=== PATIENT | male | born 1960 | race Caucasian/White ===

== ENCOUNTER 2021-05-29 18:42 | Emergency (ER) | payer OTHER ==
[2021-05-29] MEDS ORDERED: CASIRIVIMAB/IMDEVIMAB 10 ML in SODIUM CHLORIDE 100 ML IVPB ONE (18:48)
[2021-05-29 19:02] VITALS: BMI 24.3
[2021-05-29] MEDS ORDERED: ACETAMINOPHEN 500 MG TABLET (FP) PO ONE (19:03)
[2021-05-29] MEDS ORDERED: KETOROLAC TROMETHAMINE 30 MG/1 ML VIAL IVPUSH ONE (19:03)
[2021-05-29] MEDS ORDERED: KETOROLAC TROMETHAMINE 30 MG/1 ML VIAL ONE (19:59)
[2021-05-29] MEDS ORDERED: ACETAMINOPHEN 500 MG TABLET (FP) ONE (20:00)
[2021-05-29 20:32] LABS: HEMATOCRIT 37.1 % (35.4-49); HEMOGLOBIN 12.6 GM/dL (11.7-16.9); MCH 32.5 pg (25.7-33.7); MEAN CELL VOLUME 95.6 fl (80-96); MEAN PLT VOLUME 9.7 fl (7.5-11.1); PLATELET COUNT 115 10^3/uL (134-434); RBC 3.88 M/mm3 (4.00-5.60)
[2021-05-29 20:47] LABS: CALCIUM 8.5 mg/dL (8.5-10.1)
[2021-05-29 20:48] LABS: BLOOD UREA NITROGEN 15.8 mg/dL (7-18)
[2021-05-29] MEDS ORDERED: SODIUM CHLORIDE 0.9% 500 ML INFUS.BAG IV ONE (21:02)
[2021-05-29 22:05] VITALS: BP 166/55; PULSE 72; TEMP 98.7
== END 2021-05-29 22:30 | disposition home or self-care (01) ==
LOC: JER 18:42
PROC: 3E033GC Introduction of Other Therapeutic Substance into Peripheral Vein, Percutaneous Approach (ICD-10-PCS; principal; 2021-05-29)
DX: U07.1 COVID-19 (principal)
CPT/HCPCS: 36415; 80048; 85027; 99284-25; Q0240

== ENCOUNTER 2021-05-30 11:40 | Inpatient (IN) | payer OTHER ==
[2021-05-30 11:58] VITALS: BMI 24.3
[2021-05-30] MEDS ORDERED: ONDANSETRON 4 MG/2 ML VIAL IVPUSH ONE (12:14)
[2021-05-30] MEDS ORDERED: ACETAMINOPHEN 1000 MG/100 ML VIAL IVPB ONE (12:14)
[2021-05-30] MEDS ORDERED: LACTATED RINGERS SOLUTION 1000 ML INFUS.BAG IV ONE (12:14)
[2021-05-30] MEDS ORDERED: FAMOTIDINE 20 MG/50 ML IVPB 20 MG/50 ML MG IVPB ONE ×2 (12:14→12:31)
[2021-05-30] MEDS ORDERED: DEXAMETHASONE SOD PHOSPHATE 10 MG/1 ML VIAL IVPUSH ONE (12:18)
[2021-05-30] MEDS ORDERED: DEXAMETHASONE SOD PHOSPHATE 10 MG/1 ML VIAL ONE (12:31)
[2021-05-30] MEDS ORDERED: ACETAMINOPHEN INJECTION 100 ML IVPB ONE (12:31)
[2021-05-30] MEDS ORDERED: ONDANSETRON 4 MG/2 ML VIAL ONE (13:20)
[2021-05-30 13:32] LABS: HEMATOCRIT 34.4 % (35.4-49); HEMOGLOBIN 11.4 GM/dl (11.7-16.9); MCHC 33.2 g/dl (32.0-35.9); MEAN CELL VOLUME 96.5 fl (80-96); MEAN PLT VOLUME 9.2 fl (7.5-11.1); PLATELET COUNT 119 10^3/uL (134-434); RBC 3.57 M/mm3 (4.00-5.60); RDW 12.3 % (11.9-15.9); WHITE BLOOD COUNT 4.4 K/mm3 (4.0-10.8)
[2021-05-30 13:48] LABS: ANION GAP 12 MMOL/L (8-16); CHLORIDE 100 mmol/L (98-107); CO2 20 mmol/L (21-32); GLUCOSE,RANDOM 134 mg/dl (74-106); SODIUM 132 mmol/L (136-145)
[2021-05-30 13:49] LABS: ACTIVATED PTT 29.6 SECONDS (25.2-36.5)
[2021-05-30 13:52] LABS: ALBUMIN 3.1 g/dl (3.4-5.0); ALK PHOS 64 U/L (45-117); BILIRUBIN,TOTAL 1.2 mg/dl (0.2-1); LDH 276 U/L (84-246); SGOT/AST 32 U/L (15-37); SGPT/ALT 21 U/L (13-61); TOT PROT 5.8 g/dl (6.4-8.2)
[2021-05-30 13:54] LABS: INR 1.48 (0.82-1.09); PROTHROMBIN TIME (PATIENT) 16.4 SEC (10.2-13.0)
[2021-05-30 14:34] LABS: VENOUS BASE EXCESS -1.8 mmol/L (-2-2); VENOUS O2 SATURATION 88.6 % (70-80); VENOUS PCO2 33.1 mmHg (38-52); VENOUS PH 7.436 (7.310-7.410)
[2021-05-30] MEDS ORDERED: ENOXAPARIN NA (PORCINE) 60 MG/0.6 ML DISP.SYRIN SQ ONE (15:02)
[2021-05-30] MEDS: ENOXAPARIN NA (PORCINE) 40 MG/0.4 ML DISP.SYRIN SQ SCH (15:05)
[2021-05-30] MEDS ORDERED: ALBUTEROL SO4 HFA INHALER IH ONE (15:09)
[2021-05-30] MEDS: ALBUTEROL SO4 HFA INHALER IH PRN (15:16)
[2021-05-30 15:30] LABS: ERYTHROCYTE SEDIMENTATION RATE 83 mm/hr (0-20)
[2021-05-30] MEDS ORDERED: TAMSULOSIN HCL 0.4 MG CAP ONE (21:59)
[2021-05-30] MEDS: TAMSULOSIN HCL 0.4 MG CAP PO SCH (22:00)
[2021-05-30] MEDS: SODIUM CHLORIDE 1,000 ML IV SCH (22:00)
[2021-05-30] MEDS: MONTELUKAST NA 10 MG TABLET PO SCH (22:00)
[2021-05-30] MEDS ORDERED: BUPROPION HCL 200 MG PO SCH (22:00)
[2021-05-31 08:16] LABS: BASO % 0.2 % (0-2.0); EOS % 0.1 % (0-4.5); HEMATOCRIT 29.8 % (35.4-49); HEMOGLOBIN 10.2 GM/dL (11.7-16.9); LYMPH % 49.4 % (8-40); MCH 32.4 pg (25.7-33.7); MCHC 34.2 g/dl (32.0-35.9); MEAN CELL VOLUME 94.7 fl (80-96); MEAN PLT VOLUME 9.4 fl (7.5-11.1); MONO % 0.7 % (3.8-10.2); NEUT % 49.6 % (42.8-82.8); PLATELET COUNT 110 10^3/uL (134-434); RBC 3.15 M/mm3 (4.00-5.60); RDW 13.4 % (11.9-15.9); WHITE BLOOD COUNT 4.5 K/mm3 (4.0-10.0)
[2021-05-31 08:46] LABS: ALBUMIN 2.2 g/dl (3.4-5.0); BILIRUBIN,TOTAL 0.4 mg/dL (0.2-1); BLOOD UREA NITROGEN 16.6 mg/dL (7-18); CALCIUM 8.5 mg/dL (8.5-10.1); CREATININE 0.7 mg/dL (0.55-1.3); TOT PROT 5.1 g/dl (6.4-8.2)
[2021-05-31] MEDS ORDERED: PT OWN MED DRAWER 7, Y5N ONE ×3 (09:34→20:35)
[2021-05-31] MEDS ORDERED: FINASTERIDE 5 MG TABLET (FP) PO SCH (10:00)
[2021-05-31] MEDS ORDERED: BUPROPION HCL 300 MG, BUPROPION HCL 150 MG PO SCH (10:00)
[2021-05-31] MEDS: ENOXAPARIN NA (PORCINE) 40 MG/0.4 ML DISP.SYRIN SQ SCH (10:00)
[2021-05-31] MEDS: SERTRALINE HCL 50 MG TABLET (FP) PO SCH (10:01)
[2021-05-31] MEDS: FAMOTIDINE 20 MG TABLET PO SCH (10:01)
[2021-05-31] MEDS: DEXAMETHASONE SOD PHOSPHATE 10 MG/1 ML VIAL IVPUSH SCH (10:02)
[2021-05-31] MEDS ORDERED: cefTRIAXone SODIUM 1 GM VIAL ONE (11:25)
[2021-05-31] MEDS ORDERED: DEXTROSE 5%-WATER - 50 ML IVPB ONE (11:25)
[2021-05-31] MEDS: CEFTRIAXONE 1 GM in DEXTROSE 5%-WATER - 50 ML IVPB SCH (11:52)
[2021-05-31] MEDS ORDERED: REMDESIVIR 200 MG in SODIUM CHLORIDE 250 ML IVPB ONE (12:00)
[2021-05-31] MEDS: SODIUM CHLORIDE 1,000 ML IV SCH (18:39)
[2021-05-31] MEDS: ENOXAPARIN NA (PORCINE) 80 MG/0.8 ML DISP.SYRIN SQ SCH (21:25)
[2021-05-31] MEDS: FINASTERIDE 5 MG TABLET (FP) PO SCH (21:25)
[2021-05-31] MEDS: BUPROPION 200 MG PO SCH (21:25)
[2021-05-31] MEDS: TAMSULOSIN HCL 0.4 MG CAP PO SCH (21:25)
[2021-05-31] MEDS: MONTELUKAST NA 10 MG TABLET PO SCH (21:25)
[2021-06-01 07:07] LABS: BASO % 0.7 % (0-2.0); HEMATOCRIT 29.7 % (35.4-49); HEMOGLOBIN 10.5 GM/dL (11.7-16.9); LYMPH % 57.1 % (8-40); MCH 32.9 pg (25.7-33.7); MCHC 35.3 g/dl (32.0-35.9); MEAN CELL VOLUME 93.2 fl (80-96); MEAN PLT VOLUME 9.2 fl (7.5-11.1); MONO % 1.3 % (3.8-10.2); NEUT % 40.9 % (42.8-82.8); PLATELET COUNT 130 10^3/uL (134-434); RBC 3.18 M/mm3 (4.00-5.60); RDW 13.1 % (11.9-15.9); WHITE BLOOD COUNT 4.7 K/mm3 (4.0-10.0)
[2021-06-01 07:27] LABS: ALBUMIN 2.2 g/dl (3.4-5.0); BLOOD UREA NITROGEN 17.7 mg/dL (7-18)
[2021-06-01 07:30] LABS: CREATININE 0.8 mg/dL (0.55-1.3); MAGNESIUM 2.5 mg/dL (1.8-2.4)
[2021-06-01 07:31] LABS: BILIRUBIN,TOTAL 0.7 mg/dL (0.2-1)
[2021-06-01 07:32] LABS: TOT PROT 5.2 g/dl (6.4-8.2)
[2021-06-01] MEDS ORDERED: DEXTROSE 5%-WATER - 50 ML IVPB ONE (08:48)
[2021-06-01] MEDS ORDERED: cefTRIAXone SODIUM 1 GM VIAL ONE (08:48)
[2021-06-01] MEDS: ENOXAPARIN NA (PORCINE) 80 MG/0.8 ML DISP.SYRIN SQ SCH ×2 (10:33→21:27)
[2021-06-01] MEDS: CEFTRIAXONE 1 GM in DEXTROSE 5%-WATER - 50 ML IVPB SCH (10:33)
[2021-06-01] MEDS: DEXAMETHASONE SOD PHOSPHATE 10 MG/1 ML VIAL IVPUSH SCH (10:34)
[2021-06-01] MEDS: SERTRALINE HCL 50 MG TABLET (FP) PO SCH (10:34)
[2021-06-01] MEDS: ACETAMINOPHEN 325 MG TABLET (FP) PO PRN (10:35)
[2021-06-01] MEDS: FAMOTIDINE 20 MG TABLET PO SCH (10:35)
[2021-06-01] MEDS: BUPROPION 200 MG PO SCH ×2 (10:36→21:27)
[2021-06-01] MEDS: REMDESIVIR 100 MG in SODIUM CHLORIDE 250 ML IVPB SCH (10:36)
[2021-06-01] MEDS: FINASTERIDE 5 MG TABLET (FP) PO SCH (21:27)
[2021-06-01] MEDS: TAMSULOSIN HCL 0.4 MG CAP PO SCH (21:27)
[2021-06-01] MEDS: MONTELUKAST NA 10 MG TABLET PO SCH (21:27)
[2021-06-01] MEDS: guaiFENesin/D-METHORPHAN HB 10 ML UNIT-DOSE CUPS PO PRN (21:28)
[2021-06-01] MEDS ORDERED: PT OWN MED DRAWER 7, Y5N ONE (21:39)
[2021-06-02] MEDS: ACETAMINOPHEN 325 MG TABLET (FP) PO PRN ×2 (01:38→21:40)
[2021-06-02 09:16] LABS: ALBUMIN 2.3 g/dl (3.4-5.0); BLOOD UREA NITROGEN 15.2 mg/dL (7-18); CALCIUM 8.1 mg/dL (8.5-10.1)
[2021-06-02 09:19] LABS: MAGNESIUM 2.2 mg/dL (1.8-2.4)
[2021-06-02 09:20] LABS: CREATININE 0.8 mg/dL (0.55-1.3); HEMOGLOBIN 10.9 GM/dL (11.7-16.9); MCH 32.3 pg (25.7-33.7); MCHC 33.9 g/dl (32.0-35.9); MEAN CELL VOLUME 95.1 fl (80-96); MEAN PLT VOLUME 8.6 fl (7.5-11.1); PLATELET COUNT 168 10^3/uL (134-434); RBC 3.37 M/mm3 (4.00-5.60); RDW 13.1 % (11.9-15.9); WHITE BLOOD COUNT 4.3 K/mm3 (4.0-10.0)
[2021-06-02 09:21] LABS: BILIRUBIN,TOTAL 0.5 mg/dL (0.2-1); TOT PROT 5.3 g/dl (6.4-8.2)
[2021-06-02] MEDS ORDERED: DEXTROSE 5%-WATER - 50 ML IVPB ONE (09:46)
[2021-06-02] MEDS ORDERED: cefTRIAXone SODIUM 1 GM VIAL ONE (09:46)
[2021-06-02] MEDS: ENOXAPARIN NA (PORCINE) 80 MG/0.8 ML DISP.SYRIN SQ SCH ×2 (09:55→21:39)
[2021-06-02] MEDS: CEFTRIAXONE 1 GM in DEXTROSE 5%-WATER - 50 ML IVPB SCH (09:55)
[2021-06-02] MEDS: SERTRALINE HCL 50 MG TABLET (FP) PO SCH (09:55)
[2021-06-02] MEDS: FAMOTIDINE 20 MG TABLET PO SCH (09:55)
[2021-06-02] MEDS: DEXAMETHASONE SOD PHOSPHATE 10 MG/1 ML VIAL IVPUSH SCH (09:56)
[2021-06-02] MEDS: BUPROPION 200 MG PO SCH ×2 (09:57→21:40)
[2021-06-02 10:35] LABS: ANISOCYTOSIS 1+; MACROCYTOSIS 0; PLATELET ESTIMATE NORMAL; TEAR DROP CELLS 1+
[2021-06-02] MEDS: REMDESIVIR 100 MG in SODIUM CHLORIDE 250 ML IVPB SCH (11:18)
[2021-06-02] MEDS ORDERED: SODIUM CHLORIDE NASAL SPRAY 44 ML BOTTLE NS PRN (11:39)
[2021-06-02] MEDS: MONTELUKAST NA 10 MG TABLET PO SCH (21:39)
[2021-06-02] MEDS: FINASTERIDE 5 MG TABLET (FP) PO SCH (21:39)
[2021-06-02] MEDS: TAMSULOSIN HCL 0.4 MG CAP PO SCH (21:39)
[2021-06-02] MEDS ORDERED: PT OWN MED DRAWER 7, Y5N ONE (22:23)
[2021-06-03 08:48] LABS: HEMATOCRIT 28.6 % (35.4-49); HEMOGLOBIN 9.9 GM/dL (11.7-16.9); MCH 32.8 pg (25.7-33.7); MCHC 34.7 g/dl (32.0-35.9); MEAN CELL VOLUME 94.3 fl (80-96); MEAN PLT VOLUME 8.4 fl (7.5-11.1); PLATELET COUNT 171 10^3/uL (134-434); RBC 3.04 M/mm3 (4.00-5.60); RDW 13.2 % (11.9-15.9)
[2021-06-03 09:48] LABS: ALBUMIN 2.1 g/dl (3.4-5.0); BILIRUBIN,TOTAL 0.7 mg/dL (0.2-1); BLOOD UREA NITROGEN 13.6 mg/dL (7-18); CALCIUM 7.8 mg/dL (8.5-10.1); CREATININE 0.8 mg/dL (0.55-1.3); MAGNESIUM 2.2 mg/dL (1.8-2.4)
[2021-06-03 09:50] LABS: ANISOCYTOSIS 2+; MACROCYTOSIS 0; PLATELET ESTIMATE NORMAL
[2021-06-03] MEDS ORDERED: DEXTROSE 5%-WATER - 50 ML IVPB ONE (10:02)
[2021-06-03] MEDS ORDERED: cefTRIAXone SODIUM 1 GM VIAL ONE (10:02)
[2021-06-03] MEDS: ENOXAPARIN NA (PORCINE) 80 MG/0.8 ML DISP.SYRIN SQ SCH ×2 (10:04→21:10)
[2021-06-03] MEDS: FAMOTIDINE 20 MG TABLET PO SCH (10:04)
[2021-06-03] MEDS: SERTRALINE HCL 50 MG TABLET (FP) PO SCH (10:05)
[2021-06-03] MEDS: CEFTRIAXONE 1 GM in DEXTROSE 5%-WATER - 50 ML IVPB SCH (10:05)
[2021-06-03] MEDS: BUPROPION 200 MG PO SCH ×2 (10:06→21:11)
[2021-06-03] MEDS: DEXAMETHASONE SOD PHOSPHATE 10 MG/1 ML VIAL IVPUSH SCH (10:06)
[2021-06-03] MEDS: REMDESIVIR 100 MG in SODIUM CHLORIDE 250 ML IVPB SCH (11:04)
[2021-06-03] MEDS: TAMSULOSIN HCL 0.4 MG CAP PO SCH (21:10)
[2021-06-03] MEDS: FINASTERIDE 5 MG TABLET (FP) PO SCH (21:10)
[2021-06-03] MEDS: MONTELUKAST NA 10 MG TABLET PO SCH (21:10)
[2021-06-04] MEDS ORDERED: PT OWN MED DRAWER 7, Y5N ONE ×2 (07:44→22:55)
[2021-06-04 08:01] LABS: BASO % 1.1 % (0-2.0); EOS % 0.8 % (0-4.5); HEMATOCRIT 29.1 % (35.4-49); HEMOGLOBIN 10.3 GM/dL (11.7-16.9); LYMPH % 52.6 % (8-40); MCH 32.7 pg (25.7-33.7); MCHC 35.3 g/dl (32.0-35.9); MEAN CELL VOLUME 92.7 fl (80-96); MEAN PLT VOLUME 8.1 fl (7.5-11.1); MONO % 0.9 % (3.8-10.2); NEUT % 44.6 % (42.8-82.8); PLATELET COUNT 226 10^3/uL (134-434); RBC 3.14 M/mm3 (4.00-5.60); RDW 13.4 % (11.9-15.9); WHITE BLOOD COUNT 3.3 K/mm3 (4.0-10.0)
[2021-06-04 08:27] LABS: CALCIUM 8.1 mg/dL (8.5-10.1)
[2021-06-04 08:28] LABS: ALBUMIN 2.1 g/dl (3.4-5.0); BLOOD UREA NITROGEN 13.6 mg/dL (7-18)
[2021-06-04 08:30] LABS: MAGNESIUM 2.3 mg/dL (1.8-2.4)
[2021-06-04 08:32] LABS: CREATININE 0.9 mg/dL (0.55-1.3)
[2021-06-04 08:34] LABS: TOT PROT 5.4 g/dl (6.4-8.2)
[2021-06-04] MEDS ORDERED: cefTRIAXone SODIUM 1 GM VIAL ONE (09:49)
[2021-06-04] MEDS ORDERED: DEXTROSE 5%-WATER - 50 ML IVPB ONE (09:49)
[2021-06-04] MEDS: FAMOTIDINE 20 MG TABLET PO SCH (09:52)
[2021-06-04] MEDS: ENOXAPARIN NA (PORCINE) 80 MG/0.8 ML DISP.SYRIN SQ SCH ×2 (09:52→22:09)
[2021-06-04] MEDS: SERTRALINE HCL 50 MG TABLET (FP) PO SCH (09:52)
[2021-06-04] MEDS: CEFTRIAXONE 1 GM in DEXTROSE 5%-WATER - 50 ML IVPB SCH (09:52)
[2021-06-04] MEDS: DEXAMETHASONE SOD PHOSPHATE 10 MG/1 ML VIAL IVPUSH SCH (09:52)
[2021-06-04] MEDS: BUPROPION 200 MG PO SCH ×2 (09:53→22:09)
[2021-06-04] MEDS: REMDESIVIR 100 MG in SODIUM CHLORIDE 250 ML IVPB SCH (11:31)
[2021-06-04] MEDS ORDERED: ACETAMINOPHEN 1000 MG/100 ML VIAL IVPB PRN (17:22)
[2021-06-04] MEDS: ACETAMINOPHEN 325 MG TABLET (FP) PO PRN (17:32)
[2021-06-04] MEDS: TAMSULOSIN HCL 0.4 MG CAP PO SCH (22:09)
[2021-06-04] MEDS: MONTELUKAST NA 10 MG TABLET PO SCH (22:09)
[2021-06-04] MEDS: FINASTERIDE 5 MG TABLET (FP) PO SCH (22:09)
[2021-06-05 06:59] LABS: BASO % 0.5 % (0-2.0); EOS % 0.8 % (0-4.5); HEMATOCRIT 28.7 % (35.4-49); HEMOGLOBIN 9.9 GM/dL (11.7-16.9); LYMPH % 46.8 % (8-40); MCH 32.7 pg (25.7-33.7); MCHC 34.6 g/dl (32.0-35.9); MEAN CELL VOLUME 94.3 fl (80-96); NEUT % 50.9 % (42.8-82.8); PLATELET COUNT 269 10^3/uL (134-434); RBC 3.04 M/mm3 (4.00-5.60); RDW 13.4 % (11.9-15.9); WHITE BLOOD COUNT 3.7 K/mm3 (4.0-10.0)
[2021-06-05 07:19] LABS: CALCIUM 7.6 mg/dL (8.5-10.1)
[2021-06-05 07:20] LABS: BLOOD UREA NITROGEN 15.5 mg/dL (7-18); MAGNESIUM 2.4 mg/dL (1.8-2.4)
[2021-06-05 07:23] LABS: CREATININE 0.8 mg/dL (0.55-1.3)
[2021-06-05 07:24] LABS: BILIRUBIN,TOTAL 0.4 mg/dL (0.2-1); TOT PROT 5.2 g/dl (6.4-8.2)
[2021-06-05] MEDS ORDERED: cefTRIAXone SODIUM 1 GM VIAL ONE (09:05)
[2021-06-05] MEDS ORDERED: DEXTROSE 5%-WATER - 50 ML IVPB ONE (09:06)
[2021-06-05] MEDS: ENOXAPARIN NA (PORCINE) 80 MG/0.8 ML DISP.SYRIN SQ SCH (09:31)
[2021-06-05] MEDS: FAMOTIDINE 20 MG TABLET PO SCH (09:32)
[2021-06-05] MEDS: CEFTRIAXONE 1 GM in DEXTROSE 5%-WATER - 50 ML IVPB SCH (09:32)
[2021-06-05] MEDS: SERTRALINE HCL 50 MG TABLET (FP) PO SCH (09:32)
[2021-06-05] MEDS: BUPROPION 200 MG PO SCH ×2 (09:32→21:11)
[2021-06-05] MEDS: DEXAMETHASONE 4 MG TABLET (FP) PO SCH (09:33)
[2021-06-05] MEDS: guaiFENesin/D-METHORPHAN HB 10 ML UNIT-DOSE CUPS PO PRN (09:36)
[2021-06-05] MEDS ORDERED: APIXABAN 5 MG TABLET PO SCH (10:00)
[2021-06-05] MEDS: TAMSULOSIN HCL 0.4 MG CAP PO SCH (21:11)
[2021-06-05] MEDS: FINASTERIDE 5 MG TABLET (FP) PO SCH (21:11)
[2021-06-05] MEDS: MONTELUKAST NA 10 MG TABLET PO SCH (21:11)
[2021-06-05] MEDS: APIXABAN 5 MG TABLET PO SCH (21:11)
[2021-06-05] MEDS: guaiFENesin/CODEINE 10 ML UNIT-DOSE CUPS PO PRN (21:11)
[2021-06-06] MEDS ORDERED: PT OWN MED DRAWER 7, Y5N ONE (04:41)
[2021-06-06] MEDS: guaiFENesin/CODEINE 10 ML UNIT-DOSE CUPS PO PRN ×2 (06:51→22:10)
[2021-06-06 07:44] LABS: HEMATOCRIT 29.1 % (35.4-49); HEMOGLOBIN 10.1 GM/dL (11.7-16.9); MCHC 34.6 g/dl (32.0-35.9); MEAN CELL VOLUME 95.3 fl (80-96); MEAN PLT VOLUME 8.5 fl (7.5-11.1); PLATELET COUNT 335 10^3/uL (134-434); RBC 3.06 M/mm3 (4.00-5.60); WHITE BLOOD COUNT 4.2 K/mm3 (4.0-10.0)
[2021-06-06 07:53] LABS: CALCIUM 7.8 mg/dL (8.5-10.1)
[2021-06-06 07:54] LABS: ALBUMIN 1.9 g/dl (3.4-5.0); BLOOD UREA NITROGEN 15.6 mg/dL (7-18)
[2021-06-06 07:57] LABS: CREATININE 0.7 mg/dL (0.55-1.3); MAGNESIUM 2.4 mg/dL (1.8-2.4)
[2021-06-06 07:58] LABS: BILIRUBIN,TOTAL 0.5 mg/dL (0.2-1); TOT PROT 5.1 g/dl (6.4-8.2)
[2021-06-06 09:44] LABS: ANISOCYTOSIS 0; MACROCYTOSIS 0; PLATELET ESTIMATE NORMAL
[2021-06-06] MEDS ORDERED: APIXABAN 5 MG TABLET PO SCH (10:00)
[2021-06-06] MEDS: SERTRALINE HCL 50 MG TABLET (FP) PO SCH (10:05)
[2021-06-06] MEDS: DEXAMETHASONE 4 MG TABLET (FP) PO SCH (10:05)
[2021-06-06] MEDS: ALBUTEROL SO4 HFA INHALER IH PRN (10:05)
[2021-06-06] MEDS: APIXABAN 5 MG TABLET PO SCH ×2 (10:06→22:10)
[2021-06-06] MEDS: FAMOTIDINE 20 MG TABLET PO SCH (10:06)
[2021-06-06] MEDS: BUPROPION 200 MG PO SCH ×2 (10:43→22:11)
[2021-06-06] MEDS: MONTELUKAST NA 10 MG TABLET PO SCH (22:11)
[2021-06-06] MEDS: FINASTERIDE 5 MG TABLET (FP) PO SCH (22:11)
[2021-06-06] MEDS: TAMSULOSIN HCL 0.4 MG CAP PO SCH (22:11)
[2021-06-07 07:08] LABS: BASO % 0.4 % (0-2.0); EOS % 0.3 % (0-4.5); HEMATOCRIT 29.4 % (35.4-49); HEMOGLOBIN 10.3 GM/dL (11.7-16.9); LYMPH % 41.4 % (8-40); MCH 33.2 pg (25.7-33.7); MCHC 35.2 g/dl (32.0-35.9); MEAN CELL VOLUME 94.3 fl (80-96); MEAN PLT VOLUME 7.6 fl (7.5-11.1); MONO % 1.2 % (3.8-10.2); NEUT % 56.7 % (42.8-82.8); PLATELET COUNT 398 10^3/uL (134-434); RBC 3.12 M/mm3 (4.00-5.60); RDW 13.4 % (11.9-15.9); WHITE BLOOD COUNT 5.5 K/mm3 (4.0-10.0)
[2021-06-07 07:43] LABS: ALBUMIN 1.9 g/dl (3.4-5.0); BLOOD UREA NITROGEN 15.8 mg/dL (7-18); CALCIUM 8.1 mg/dL (8.5-10.1)
[2021-06-07 07:46] LABS: BILIRUBIN,TOTAL 0.4 mg/dL (0.2-1); CREATININE 0.8 mg/dL (0.55-1.3)
[2021-06-07 07:47] LABS: TOT PROT 5.2 g/dl (6.4-8.2)
[2021-06-07 07:49] LABS: MAGNESIUM 2.4 mg/dL (1.8-2.4)
[2021-06-07] MEDS: SERTRALINE HCL 50 MG TABLET (FP) PO SCH (10:47)
[2021-06-07] MEDS: APIXABAN 5 MG TABLET PO SCH (10:48)
[2021-06-07] MEDS: DEXAMETHASONE 4 MG TABLET (FP) PO SCH (10:48)
[2021-06-07] MEDS: FAMOTIDINE 20 MG TABLET PO SCH (10:48)
[2021-06-07] MEDS: BUPROPION 200 MG PO SCH (10:48)
[2021-06-07 15:07] VITALS: BP 113/62; PULSE 70; TEMP 97.7
== END 2021-06-07 16:40 | disposition home or self-care (01) | DRG 177 ==
LOC: FER 11:40 → J4S 05-31 03:00
PROVIDERS: ADMIT Internal Medicine; ATTEND Nurse Practitioner Acute Care
PROC: XW033E5 Introduction of Remdesivir Anti-infective into Peripheral Vein, Percutaneous Approach, New Technology Group 5 (ICD-10-PCS; principal; 2021-05-31)
DX: U07.1 COVID-19 (principal); J12.82 Pneumonia due to coronavirus disease 2019; E87.1 Hypo-osmolality and hyponatremia; C85.90 Non-Hodgkin lymphoma, unspecified, unspecified site; R04.2 Hemoptysis; D84.9 Immunodeficiency, unspecified; F41.8 Other specified anxiety disorders; N40.0 Benign prostatic hyperplasia without lower urinary tract symptoms; E86.0 Dehydration; D64.9 Anemia, unspecified; D69.6 Thrombocytopenia, unspecified; R09.02 Hypoxemia
CPT/HCPCS: 36415; 71045-TC-FY; 71250-TC; 71275-TC; 80053; 82550; 82553; 82728; 82803; 83615; 83735; 84484; 85025; 85379; 85610; 85651; 85730; 86140; 86480; 86705; 86708; 86769; 86803; 87040; 87517; 93005; 94010; 94761; 99285-25; C9399; C9803; J0131; J1100; Q9967; U0003; U0005

== ENCOUNTER 2023-01-04 07:52 | Day surgery (SDC) | payer OTHER ==
[2023-01-02 16:19] VITALS: BMI 24.3
[2023-01-04 10:00] VITALS: TEMP 98
[2023-01-04 10:04] VITALS: RESP 16
[2023-01-04 10:06] VITALS: BP 128/76; PULSE 58
== END 2023-01-04 10:32 | disposition home or self-care (01) ==
LOC: FASU-ENDO 07:52
PROVIDERS: ATTEND Internal Medicine Gastroenterology
PROC: 0DJD8ZZ Inspection of Lower Intestinal Tract, Via Natural or Artificial Opening Endoscopic (ICD-10-PCS; principal; 2023-01-04 09:22)
DX: Z12.11 Encounter for screening for malignant neoplasm of colon (principal)